=== PATIENT | female | born 1950 | race Caucasian/White ===

== ENCOUNTER 2016-12-23 13:58 | Emergency (ER) | payer MEDICARE, OTHER ==
[~2016-12-23] VITALS: Ht 162.6 cm; Wt 79.5 kg
[2016-12-23 14:02] VITALS: PULSE 77; TEMP 97.9
[2016-12-23] MEDS ORDERED: GLUCOPHAGE XR500 M1 PO (15:20)
[2016-12-23] MEDS ORDERED: NOVLOG SQ (15:21)
[2016-12-23] MEDS ORDERED: HYZAAR 50-12.1 UDTAB PO (15:22)
[2016-12-23] MEDS ORDERED: LOPRESSOR 550 MG/TAB PO (15:22)
[2016-12-23] MEDS ORDERED: PRAVACHOL 40MG40 MG PO (15:25)
[2016-12-23] MEDS ORDERED: PRILOSEC 20MG20 MG PO (15:25)
[2016-12-23] MEDS ORDERED: NORCO 325 MG-51 TAB PO (16:25)
[2016-12-23 16:34] VITALS: BP 139/82
== END 2016-12-23 16:37 | disposition home or self-care (01) ==
LOC: COL.ER 13:58
DX: S52.122A Displaced fracture of head of left radius, initial encounter for closed fracture (principal); S00.31XA Abrasion of nose, initial encounter; S00.511A Abrasion of lip, initial encounter; S02.2XXA Fracture of nasal bones, initial encounter for closed fracture; S52.032A Displaced fracture of olecranon process with intraarticular extension of left ulna, initial encounter for closed fracture; W01.198A Fall on same level from slipping, tripping and stumbling with subsequent striking against other object, initial encounter; E11.9 Type 2 diabetes mellitus without complications; Z96.41 Presence of insulin pump (external) (internal); Z79.4 Long term (current) use of insulin; I10 Essential (primary) hypertension